=== PATIENT | male | born 1995 | race Caucasian/White ===

== ENCOUNTER 2018-07-12 15:56 | Emergency (ER) | payer MEDICAID, OTHER ==
[~2018-07-12] VITALS: Ht 180.3 cm; Wt 58.6 kg
[2018-07-12 16:06] VITALS: BP 91/60
== END 2018-07-12 16:58 | disposition home or self-care (01) ==
LOC: ER 15:57
DX: M79.672 Pain in left foot (principal); G89.29 Other chronic pain
CPT/HCPCS: 99281

== ENCOUNTER 2018-07-18 17:56 | Emergency (ER) | payer MEDICAID, OTHER ==
[~2018-07-18] VITALS: Ht 180.3 cm; Wt 59.1 kg
[2018-07-18 18:03] VITALS: BP 127/77
[2018-07-18 19:51] LABS: URINE AMPHETAMINE SCREEN NEGATIVE (Neg); URINE BARBITUATE SCREEN NEGATIVE (Neg); URINE BENZODIAZEPINES SCREEN NEGATIVE (Neg); URINE CANNABINOID SCREEN POSITIVE (Neg); URINE COCAINE SCREEN NEGATIVE (Neg); URINE METHADONE SCREEN NEGATIVE (Neg); URINE OPIATE SCREEN NEGATIVE (Neg); URINE PHENCYCLIDINE SCREEN NEGATIVE (Neg)
== END 2018-07-18 19:28 | disposition home or self-care (01) ==
LOC: ER 17:57
DX: G89.29 Other chronic pain (principal); M79.672 Pain in left foot
CPT/HCPCS: 80305; 99283

== ENCOUNTER 2025-02-26 03:28 | Emergency (ER) | payer MEDICAID ==
[~2025-02-26] VITALS: Ht 180.3 cm; Wt 64.2 kg
[2025-02-26 03:28] VITALS: BP 112/69; PULSE 90; RESP 16; TEMP 97.2; O2SAT 97
--- NOTE | 2025-02-26 03:47 | Physician Documentation ---
History of Present Illness ~ Chief Complaint: Abscess Stated Complaint: ABSCESS ON THUMB Time Seen by MD: 03:47 Primary Medical Doctor: NONE HPI Patient presents to the emergency room with concerns of what he claims this is spider bite over the MP joint of his right 1st digit. No fevers. Symptoms began three days ago. Tetanus Within 5 Years: Yes (1.5 YEARS AGO) Medication Reconciliation Allergies: Coded Allergies: No Known Allergies (Unverified , 02/26/25) Past Medical History Past Medical History: No Pertinent History, Chronic Pain Alcohol Use: Occasionally Lives with: S/O Lives In: Home Review of Systems ROS All review of systems negative except as per HPI Physical Exam Vital Signs: Temperature: 97.2, Source: Temporal, Heart Rate: 90, Respiratory Rate: 16, BP: 112/69, Pulse Oximetry: 97, Weight: 64.150 Oxygen Flow Rate: 0 Physical Exam General: Patient is awake, alert, oriented x4 in no acute distress and well appearing.~ Head: Normocephalic and atraumatic. Eyes: Conjunctival normal. EOMI. PERRL. ENT: Mucous membranes moist. Neck: Supple, trachea is midline. Chest: Clear to auscultation bilaterally without rales, rhonchi, or wheezes. There is no accessory muscle use or retractions. Cardiac: RRR without murmurs, gallops, or rubs. Extremity: Infected blister measuring 2.5 cm x 2.5 cm over the MP joint of his 1st digit with mild cellulitis associated with it. No limitations with flexion or extension Procedures Procedures Incision and drainage: Status post informed verbal consent 11. Blade utilized to perform 1 cm incision and drainage to patient's infected blister on affected hand. A proximally 3 cc of purulent discharge expressed. Patient tolerated procedure well without complication. Total time of procedure 3 minutes. Patient's wound then thoroughly irrigated and bandaged with bacitracin Progress Results/Orders Results/Orders Orders - CHUY GUPTA MD Dressing Orders (02/26/25 03:51) Completed Orders - CHUY GUPTA MD Bacitracin Ointment (Bacitracin Ointment (02/26/25 03:55) Ondansetron Disint. Tablet (Zofran Odt T (02/26/25 03:55) Sulfamethox/Trimetho. Ds Tab (Septra Ds (02/26/25 03:55) Vital Signs 02/26/25 03:28 Temp 97.2 Pulse 90 Resp 16 B/P (MAP) 112/69 Pulse Ox 97 O2 Flow Rate 0 Medical Decision Making Findings Patient presented to the emergency room with an infected blister as per HPI. Patient is status post incision and drainage. Wound care discussed as well as ER precautions. Given patient's lifestyle we will cover with antibiotics Departure Disposition: HOME / SELF CARE / HOMELESS Impression: Primary Impression: Abscess Condition: Stable Discharge Instructions: Abscess, Care After Referrals: NO PRIMARY CARE PROVIDER (PCP) Prescriptions Sulfamethoxazole/Trimethoprim (Bactrim Ds Tablet) 800 Mg-160 Mg Tablet 1 TAB PO Q12H for 10 Days, #20 TAB Prov: CHUY GUPTA MD 02/26/25 Education Educated: Patient Educated regarding: diagnosis, treatment, need for follow up Signature Scribe Signature: No scribe Attestation: The note accurately reflects work and decisions made by me.Chuy Gupta MD 02/26/25 04:04 CHUY GUPTA MD February 26, 2025 03:47
[2025-02-26] MEDS ORDERED: SULF1TAB49 PO (04:03)
[2025-02-26] MEDS: ondansetron 4mg rapidly disintigrating tab PO ONE (04:06)
[2025-02-26] MEDS: sulfamethoxazole/trimethoprim DS (800/160mg) tablet PO ONE (04:06)
[2025-02-26] MEDS: bacitracin 15gm ointment TP ONE (04:06)
== END 2025-02-26 04:31 | disposition home or self-care (01) ==
LOC: ER 03:28
DX: L02.511 Cutaneous abscess of right hand (principal)
CPT/HCPCS: 10060; 99283; A6258